=== PATIENT | female | born 1990 | race Caucasian/White ===

== ENCOUNTER 2017-12-15 17:04 | Emergency (ER) | payer BC ==
--- NOTE | 2017-12-15 17:17 | EDM.PDOC ---
ED HPI GENERAL MEDICAL PROBLEM - General Chief Complaint: Lower Extremity Injury/Pain Stated Complaint: SWELLING IN R LEG/32WKS PREG Time Seen by Provider: 12/15/17 17:16 Source of Information: Reports: Patient History Limitations: Reports: No Limitations - History of Present Illness INITIAL COMMENTS - FREE TEXT/NARRATIVE: History of present illness: []Patient is 32 weeks of right leg numbness. swelling and pain last night and abdominal cramping for weeks.dr. Zapata her OBrequest that she come here to be evaluated. Review of systems: As per history of present illness and below otherwise all systems reviewed and negative. Past medical history: As per history of present illness and as reviewed below otherwise noncontributory. Surgical history: As per history of present illness and as reviewed below otherwise noncontributory. Social history: No reported history of drug or alcohol abuse. Family history: As per history of present illness and as reviewed below otherwise noncontributory. Physical exam: General: Well developed, well nourished in NAD HEENT: Atraumatic, normocephalic, pupils reactive, negative for conjunctival pallor or scleral icterus, mucous membranes moist, throat clear, neck supple, nontender, trachea midline. Lungs: Clear to auscultation, breath sounds equal bilaterally, chest nontender. Heart: S1S2, regular, negative for clicks, rubs, or JVD. Abdomen: Soft, 32 week abdomen, nontender. Negative for masses or hepatosplenomegaly. Negative for costovertebral tenderness. Pelvis: Stable nontender. Genitourinary: Deferred. Rectal: Deferred. Extremities: Atraumatic, negative for cords or calf pain. No noted edema on her symptomatic leg, the right. She has trace pitting edema on the left. Neurovascular unremarkable. Neuro: Awake, alert, oriented. Cranial nerves II through XII unremarkable. Cerebellum unremarkable. Motor and sensory unremarkable throughout. Exam nonfocal. Diagnostics: []Doppler ultrasound of the right leg negative for DVT Therapeutics: [] Impression: []Right leg paresthesias Plan: []Patient is to go to OB directly from ER for monitoring. Definitive disposition and diagnosis as appropriate pending reevaluation and review of above. rightleg Pain Score (Numeric/FACES): 1 - Related Data Allergies Allergy/AdvReac Type Severity Reaction Status Date / Time latex Allergy Rash Verified 12/15/17 17:25 Home Meds: Home Meds Docosahexanoic Acid [ Dha] 200 mg PO DAILY 12/15/17 [History] Past Medical History HEENT History: Reports: None Cardiovascular History: Reports: None Respiratory History: Reports: None Genitourinary History: Reports: None EAP SPECIALIST History: Reports: None Musculoskeletal History: Reports: None Neurological History: Reports: None Psychiatric History: Reports: None Endocrine/Metabolic History: Reports: None Dermatologic History: Reports: None - Infectious Disease History Infectious Disease History: Reports: None - Past Surgical History HEENT Surgical History: Reports: None GI Surgical History: Reports: Cholecystectomy Female Surgical History: Reports: None Endocrine Surgical History: Reports: None Neurological Surgical History: Reports: None Musculoskeletal Surgical History: Reports: None Social & Family History - Family History HEENT: Reports: None Cardiac: Reports: None - Tobacco Use Smoking Status *Q: Current Every Day Smoker Years of Tobacco use: 10 Packs/Tins Daily: 0.2 Second Hand Smoke Exposure: No - Alcohol Use Days Per Week of Alcohol Use: 1 Number of Drinks Per Day: 5 Total Drinks Per Week: 5 - Recreational Drug Use Recreational Drug Use: No Review of Systems - Review of Systems Review Of Systems: See Below (the history of present illness) ED EXAM, GENERAL - Physical Exam Exam: See Below (see history of present illness) Course - Vital Signs Last Recorded V/S: Last Vital Signs Temp 97.3 F 12/15/17 17:18 Pulse 100 12/15/17 17:18 Resp 18 12/15/17 17:18 BP 121/72 12/15/17 17:18 Pulse Ox 99 12/15/17 17:18 - Orders/Labs/Meds Orders: Active Orders 24 hr Category Date Time Status Heart Rate [RC] Click to Edit Care 12/15/17 18:11 Active Venous Doppler Lwr Ext Rt [US] Stat Exams 12/15/17 17:15 Taken Departure - Departure Time of Disposition: 18:23 Disposition: Home, Self-Care 01 Condition: Good Clinical Impression: Right leg paresthesias - Discharge Information Referrals: Yony Goyal MD [Primary Care Provider] - Forms: ED Department Discharge Additional Instructions: The following information is given to patients seen in the emergency department who are being discharged to home. This information is to outline your options for follow-up care. We provide all patients seen in our emergency department with a follow-up referral. The need for follow-up, as well as the timing and circumstances, are variable depending upon the specifics of your emergency department visit. If you don't have a primary care physician on staff, we will provide you with a referral. We always advise you to contact your personal physician following an emergency department visit to inform them of the circumstance of the visit and for follow-up with them and/or the need for any referrals to a consulting specialist. The emergency department will also refer you to a specialist when appropriate. This referral assures that you have the opportunity for follow-up care with a specialist. All of these measure are taken in an effort to provide you with optimal care, which includes your follow-up. Under all circumstances we always encourage you to contact your private physician who remains a resource for coordinating your care. When calling for follow-up care, please make the office aware that this follow-up is from your recent emergency room visit. If for any reason you are refused follow-up, please contact the [facility] Emergency Department at and asked to speak to the emergency department charge nurse. [facility] [address] [place] [address] - My Orders Last 24 Hours: My Active Orders 12/15/17 17:15 Venous Doppler Lwr Ext Rt [US] Stat 12/15/17 18:11 Heart Rate [RC] Click to Edit - Assessment/Plan Last 24 Hours: My Active Orders 12/15/17 17:15 Venous Doppler Lwr Ext Rt [US] Stat 12/15/17 18:11 Heart Rate [RC] Click to Edit
[2017-12-15 18:25] VITALS: BP 124/82
--- NOTE | 2017-12-18 10:28 | US ---
EXAM DATE: 12/15/17 PATIENT'S AGE: 27 Patient: JEANE STRANGE Facility: [place], [place] Site . Site : 1991 Study: US Extremity Right [id number]/[id number] 6:08:18 PM Ordering Physician: Hector Ramos Final Report: HISTORY: Right leg pain. Thirty-two weeks . TECHNIQUE: Grayscale and color and spectral Doppler ultrasound of the right lower extremity deep veins. COMPARISON: None. FINDINGS: Common femoral, femoral, and popliteal veins are patent and compressible with normal response to augmentation. Anterior and posterior tibial veins and peroneal veins are patent. IMPRESSION: No right lower extremity DVT. Dictated by Rudy Murrieta MD @ Dec 15 2017 6:18PM (Electronic Signature) Report Signed by Proxy. DEL
== END 2017-12-15 18:32 | disposition still patient (30) ==
LOC: MW.ED 17:04
DX: O99.89 Other specified diseases and conditions complicating pregnancy, childbirth and the puerperium (principal); R20.2 Paresthesia of skin; O99.333 Smoking (tobacco) complicating pregnancy, third trimester; F17.210 Nicotine dependence, cigarettes, uncomplicated; Z91.040 Latex allergy status; Z3A.32 32 weeks gestation of pregnancy
CPT/HCPCS: 93971-26-RT; 93971-RT; 99283; 99283-25

== ENCOUNTER 2018-02-06 16:25 | Inpatient (IN) | payer BC, MEDICAID, OTHER ==
[2018-02-06] MEDS ORDERED: Butorphanol 1 MG/ML SDV IVPUSH PRN (17:10)
[2018-02-06] MEDS ORDERED: Nalbuphine 10 MG/1 ML Vial IVPUSH PRN (17:10)
[2018-02-06] MEDS ORDERED: Water For Irrigation,Sterile 1,000 ML Container IRR PRN (17:10)
[2018-02-06] MEDS ORDERED: Tranexamic Acid 1,000 MG in Sodium Chloride 0.9% 100 ML IV PRN (17:10)
[2018-02-06] MEDS ORDERED: Lidocaine 1% 50 ML MDV INJECT PRN (17:10)
[2018-02-06] MEDS ORDERED: Carboprost Tromethamine 250 MCG/1 ML Amp IM PRN (17:10)
[2018-02-06] MEDS ORDERED: Sodium Chloride 0.9% 2.5 ML Syringe FLUSH PRN (17:10)
[2018-02-06] MEDS ORDERED: Misoprostol 200 MCG Tab PO PRN (17:10)
[2018-02-06] MEDS ORDERED: Sodium Chloride 0.9% 10 ML Syringe FLUSH PRN (17:10)
[2018-02-06] MEDS ORDERED: Methylergonovine 0.2 MG/1 ML Amp IM PRN (17:10)
[2018-02-06] MEDS ORDERED: Oxytocin/0.9 % Sodium Chloride 30 UNIT/500 ML BAG IV SCH ×2 (17:15→21:15)
--- NOTE | 2018-02-06 19:06 | PCM.LDHP ---
L&D History of Present Illness - General Date of Service: 02/06/18 Admit Problem/Dx: Patient Status Order with Admit Dx/Problem 02/06/18 17:10 Patient Status [ADT] Routine Admission Diagnosis/Problem Admission Diagnosis/Problem - planned Source of Information: Patient History Limitations: Reports: No Limitations - History of Present Illness Improves with: Reports: None Worsens with: Reports: None Associated Symptoms: Reports: N - Related Data Allergies/Adverse Reactions: Allergies Allergy/AdvReac Type Severity Reaction Status Date / Time latex Allergy Rash Verified 12/15/17 17:25 Home Medications: Home Meds Docosahexanoic Acid [ Dha] 200 mg PO DAILY 12/15/17 [History] Past Medical History HEENT History: Reports: None Cardiovascular History: Reports: None Respiratory History: Reports: None Genitourinary History: Reports: None HIGHWAY TECHNICIAN History: Reports: None Musculoskeletal History: Reports: None Neurological History: Reports: None Psychiatric History: Reports: None Endocrine/Metabolic History: Reports: None Dermatologic History: Reports: None - Infectious Disease History Infectious Disease History: Reports: None - Past Surgical History HEENT Surgical History: Reports: None GI Surgical History: Reports: Cholecystectomy Female Surgical History: Reports: None Endocrine Surgical History: Reports: None Neurological Surgical History: Reports: None Musculoskeletal Surgical History: Reports: None Social & Family History - Family History Family Medical History: Noncontributory HEENT: Reports: None Cardiac: Reports: None - Tobacco Use Smoking Status *Q: Current Every Day Smoker Years of Tobacco use: 10 Packs/Tins Daily: 0.2 Second Hand Smoke Exposure: No - Alcohol Use Days Per Week of Alcohol Use: 1 Number of Drinks Per Day: 5 Total Drinks Per Week: 5 - Recreational Drug Use Recreational Drug Use: No H&P Review of Systems - Review of Systems: Review Of Systems: See Below General: Reports: No Symptoms HEENT: Reports: No Symptoms Pulmonary: Reports: No Symptoms Cardiovascular: Reports: No Symptoms Gastrointestinal: Reports: No Symptoms Genitourinary: Reports: No Symptoms Musculoskeletal: Reports: No Symptoms Skin: Reports: No Symptoms Psychiatric: Reports: No Symptoms Neurological: Reports: No Symptoms Hematologic/Lymphatic: Reports: No Symptoms Immunologic: Reports: No Symptoms L&D Exam - Exam Exam: See Below - OB Specific Fundal Height In cm: 37 Contraction Intensity: Mild Movement: Active Heart Tones: Present Presentation: Vertex - Morel Score Morel Score Cervix Position: Anterior Morel Score Consistency: Soft Morel Score Effacement: >80% Morel Score Dilation: 3-4 cm Morel Score Infant's Station: -1 ,0 Morel Score Total: 11 - Exam General: Alert, Oriented HEENT: PERRLA, Conjunctiva Clear, EACs Clear, EOMI, Hearing Intact, Mucosa Moist & Allen, Nares Patent, Normal Nasal Septum, Posterior Pharynx Clear, TMs Clear Neck: Supple, Trachea Midline Lungs: Clear to Auscultation, Normal Respiratory Effort Cardiovascular: Regular Rate, Regular Rhythm GI/Abdominal Exam: Normal Bowel Sounds, Soft, Non-Tender, No Organomegaly, No Distention, No Abnormal Bruit, No Mass, Pelvis Stable Rectal Exam: Normal Exam, Normal Rectal Tone Genitourinary: Normal external exam, Normal bimanual exam, Normal speculum exam Back Exam: Normal Inspection, Full Range of Motion Extremities: Normal Inspection, Normal Range of Motion, Non-Tender, No Pedal Edema, Normal Capillary Refill Skin: Warm, Dry, Intact Neurological: Cranial Nerves Intact, Reflexes Equal Bilateral Psychiatric: Alert, Normal Affect, Normal Mood - Patient Data Lab Results Last 24 hrs: Laboratory Results - last 24 hr 02/06/18 02/06/18 02/06/18 Range/Units 16:45 17:25 17:25 WBC 9.86 (4.0-11.0) K/uL RBC 3.94 L (4.30-5.90) M/uL Hgb 12.0 (12.0-16.0) g/dL Hct 35.1 L (36.0-46.0) % MCV 89.1 (80.0-98.0) fL MCH 30.5 (27.0-32.0) pg MCHC 34.2 (31.0-37.0) g/dL RDW Std Deviation 45.7 (28.0-62.0) fl RDW Coeff of Brenda 14 (11.0-15.0) % Plt Count 205 (150-400) K/uL MPV 11.00 (7.40-12.00) fL Nucleated RBC % 0.0 /100WBC Nucleated RBCs # 0 K/uL Membrane Rupture POSITIVE Blood Type A POSITIVE Antibody Screen NEGATIVE Result Diagrams: 02/06/18 17:25 Problem List Initiated/Reviewed/Updated: Yes Orders Last 24hrs: Active Orders 24 hr Category Date Time Status Patient Status [ADT] Routine ADT 02/06/18 17:10 Active Non Stress Test [RC] PER UNIT ROUTINE Care 02/06/18 16:31 Inactive May Shower [RC] ASDIRECTED Care 02/06/18 17:10 Active Notify Provider [RC] PRN Care 02/06/18 17:10 Active Up ad Ashley [RC] ASDIRECTED Care 02/06/18 16:31 Inactive Up ad Ashley [RC] ASDIRECTED Care 02/06/18 17:10 Active Vaginal Exam [RC] Click to Edit Care 02/06/18 16:31 Inactive Vital Signs [RC] PER UNIT ROUTINE Care 02/06/18 16:31 Inactive Vital Signs [RC] PER UNIT ROUTINE Care 02/06/18 17:10 Active Clear Liquid Diet [DIET] Diet 02/06/18 Breakfast Active Butorphanol [Stadol] Med 02/06/18 17:10 Active 1 mg IVPUSH Q1H PRN Carboprost Tromethamine [Hemabate DS] Med 02/06/18 17:10 Active 250 mcg IM ASDIRECTED PRN Lactated Ringers [Ringers, Lactated] 1,000 ml Med 02/06/18 17:15 Active IV ASDIRECTED Lidocaine 1% [Xylocaine 1%] Med 02/06/18 17:10 Active 50 ml INJECT .ONCE PRN Methylergonovine [Methergine] Med 02/06/18 17:10 Active 0.2 mg IM ASDIRECTED PRN Misoprostol [Cytotec] Med 02/06/18 17:10 Active 200 mcg PO .ONCE PRN Nalbuphine [Nubain] Med 02/06/18 17:10 Active 10 mg IVPUSH Q1H PRN Oxytocin/0.9 % Sodium Chloride [Oxytocin 30 Unit/500 ML Med 02/06/18 17:15 Active -NS] 30 unit in 500 ml IV TITRATE Sodium Chloride 0.9% [Saline Flush] Med 02/06/18 17:10 Active 10 ml FLUSH ASDIRECTED PRN Sodium Chloride 0.9% [Saline Flush] Med 02/06/18 17:10 Active 2.5 ml FLUSH ASDIRECTED PRN Tranexamic Acid [Cyklokapron] 1,000 mg Med 02/06/18 17:10 Active Sodium Chloride 0.9% [Normal Saline] 100 ml IV ONETIME Water For Irrigation,Sterile [Sterile Water for Med 02/06/18 17:10 Active Irrigation] 1,000 ml IRR ASDIRECTED PRN Scalp Electrode [WOMSER] Per Unit Routine Oth 02/06/18 17:10 Ordered Peripheral IV Insertion Adult [OM.PC] Routine Oth 02/06/18 17:10 Ordered Resuscitation Status Routine Resus Stat 02/06/18 17:10 Ordered Medication Orders Butorphanol Tartrate (Stadol) 1 mg IVPUSH Q1H PRN PRN Reason: Pain Carboprost Tromethamine (Hemabate Ds) 250 mcg IM ASDIRECTED PRN PRN Reason: Post Hemorrhage Lactated Ringer's (Ringers, Lactated) 1,000 mls @ 150 mls/hr IV ASDIRECTED TENISHA Oxytocin/Sodium Chloride (Oxytocin 30 Unit/500 Ml-Ns) 30 unit in 500 mls @ 999 mls/hr IV TITRATE TENISHA Tranexamic Acid 1,000 mg/ (Sodium Chloride) 110 mls @ 660 mls/hr IV ONETIME PRN PRN Reason: Bleeding Lidocaine HCl (Xylocaine 1%) 50 ml INJECT .ONCE PRN PRN Reason: Laceration repair Methylergonovine Maleate (Methergine) 0.2 mg IM ASDIRECTED PRN PRN Reason: Post Hemorrhage Misoprostol (Cytotec) 200 mcg PO .ONCE PRN PRN Reason: Post Hemorrhage Nalbuphine HCl (Nubain) 10 mg IVPUSH Q1H PRN PRN Reason: Pain (severe 7-10) Sodium Chloride (Saline Flush) 10 ml FLUSH ASDIRECTED PRN PRN Reason: Keep Vein Open Sodium Chloride (Saline Flush) 2.5 ml FLUSH ASDIRECTED PRN PRN Reason: Keep Vein Open Sterile Water (Sterile Water For Irrigation) 1,000 ml IRR ASDIRECTED PRN PRN Reason: delivery Assessment/Plan Comment:: [id number] SROM at 1:30 pm felice mildly. She can have epidural when needed.
[2018-02-06] MEDS ORDERED: Nicotine 21 MG/24 Hr Patch TRDERM SCH (19:15)
[2018-02-06] MEDS: Lactated Ringers 1,000 ML IV SCH (22:49)
--- NOTE | 2018-02-07 00:53 | PCM.PREANE ---
Preanesthetic Assessment - Procedure Proposed Procedure: labor epidural - Anesthesia/Transfusion/Family Hx Anesthesia History: Prior Anesthesia Without Reaction Family History of Anesthesia Reaction: No Transfusion History: No Prior Transfusion(s) - Review of Systems Other: Reports: None - Physical Assessment Height: 5 ft 8.5 in Weight: 90.265 kg ASA Class: 2 Mental Status: Alert & Oriented x3 Airway Class: Mallampati = 1 Dentition: Reports: Normal Dentition Thyro-Mental Finger Breadths: 3 Mouth Opening Finger Breadths: 3 ROM/Head Extension: Full - Lab Values: Laboratory Last Values WBC 9.86 K/uL (4.0-11.0) 02/06/18 17:25 RBC 3.94 M/uL (4.30-5.90) L 02/06/18 17:25 Hgb 12.0 g/dL (12.0-16.0) 02/06/18 17:25 Hct 35.1 % (36.0-46.0) L 02/06/18 17:25 MCV 89.1 fL (80.0-98.0) 02/06/18 17:25 MCH 30.5 pg (27.0-32.0) 02/06/18 17:25 MCHC 34.2 g/dL (31.0-37.0) 02/06/18 17:25 RDW Std Deviation 45.7 fl (28.0-62.0) 02/06/18 17:25 RDW Coeff of Brenda 14 % (11.0-15.0) 02/06/18 17:25 Plt Count 205 K/uL (150-400) 02/06/18 17:25 MPV 11.00 fL (7.40-12.00) 02/06/18 17:25 Nucleated RBC % 0.0 /100WBC 02/06/18 17:25 Nucleated RBCs # 0 K/uL 02/06/18 17:25 Membrane Rupture POSITIVE 02/06/18 16:45 Blood Type A POSITIVE 02/06/18 17:25 Antibody Screen NEGATIVE 02/06/18 17:25 - Allergies Allergies/Adverse Reactions: Allergies Allergy/AdvReac Type Severity Reaction Status Date / Time latex Allergy Rash Verified 12/15/17 17:25 - Blood Blood Available: Yes Product(s) Available: PRBC - Acknowledgements Anesthesia Type Planned: Epidural Pt an Appropriate Candidate for the Planned Anesthesia: Yes Alternatives and Risks of Anesthesia Discussed w Pt/Guardian: Yes Pt/Guardian Understands and Agrees with Anesthesia Plan: Yes PreAnesthesia Questionnaire HEENT History: Reports: Impaired Vision Cardiovascular History: Reports: None Respiratory History: Reports: None Genitourinary History: Reports: None TECHNICAL APPLICATIONS SCIENTIST History: Reports: Musculoskeletal History: Reports: None Neurological History: Reports: None Psychiatric History: Reports: None Endocrine/Metabolic History: Reports: None Dermatologic History: Reports: None - Infectious Disease History Infectious Disease History: Reports: None - Past Surgical History HEENT Surgical History: Reports: Other (See Below) Other HEENT Surgeries/Procedures: [place] tooth extraction. GI Surgical History: Reports: Cholecystectomy Female Surgical History: Reports: None Endocrine Surgical History: Reports: None Neurological Surgical History: Reports: None Musculoskeletal Surgical History: Reports: None - SUBSTANCE USE Smoking Status *Q: Current Every Day Smoker Tobacco Use Within Last Twelve Months: Cigarettes Second Hand Smoke Exposure: No Days Per Week of Alcohol Use: 1 Number of Drinks Per Day: 5 Total Drinks Per Week: 5 Recreational Drug Use History: No - HOME MEDS Home Medications: Home Meds Docosahexanoic Acid [ Dha] 200 mg PO DAILY 12/15/17 [History] - CURRENT (IN HOUSE) MEDS Current Meds: Current Medications Butorphanol Tartrate (Stadol) 1 mg IVPUSH Q1H PRN PRN Reason: Pain Carboprost Tromethamine (Hemabate Ds) 250 mcg IM ASDIRECTED PRN PRN Reason: Post Hemorrhage Lactated Ringer's (Ringers, Lactated) 1,000 mls @ 150 mls/hr IV ASDIRECTED TENISHA Last Admin: 02/06/18 22:49 Dose: 150 mls/hr Oxytocin/Sodium Chloride (Oxytocin 30 Unit/500 Ml-Ns) 30 unit in 500 mls @ 999 mls/hr IV TITRATE TENISHA Tranexamic Acid 1,000 mg/ (Sodium Chloride) 110 mls @ 660 mls/hr IV ONETIME PRN PRN Reason: Bleeding Oxytocin/Sodium Chloride (Oxytocin 30 Unit/500 Ml-Ns) 30 unit in 500 mls @ 2 mls/hr IV TITRATE TENISHA; Protocol Last Infusion: 02/06/18 23:50 Dose: 6 munits/min, 6 mls/hr Lidocaine HCl (Xylocaine 1%) 50 ml INJECT .ONCE PRN PRN Reason: Laceration repair Methylergonovine Maleate (Methergine) 0.2 mg IM ASDIRECTED PRN PRN Reason: Post Hemorrhage Misoprostol (Cytotec) 200 mcg PO .ONCE PRN PRN Reason: Post Hemorrhage Nalbuphine HCl (Nubain) 10 mg IVPUSH Q1H PRN PRN Reason: Pain (severe 7-10) Nicotine (Habitrol) 21 mg TRDERM DAILY TENISHA Last Admin: 02/06/18 21:21 Dose: 21 mg Sodium Chloride (Saline Flush) 10 ml FLUSH ASDIRECTED PRN PRN Reason: Keep Vein Open Sodium Chloride (Saline Flush) 2.5 ml FLUSH ASDIRECTED PRN PRN Reason: Keep Vein Open Sterile Water (Sterile Water For Irrigation) 1,000 ml IRR ASDIRECTED PRN PRN Reason: delivery
[2018-02-07] MEDS: Lactated Ringers 1,000 ML IV SCH ×2 (03:20→03:56)
[2018-02-07] MEDS ORDERED: Ropivacaine 0.2% 2 MG/ML 20 ML SDV ONE (03:32)
[2018-02-07] MEDS ORDERED: Acetaminophen 500 MG Tab PO PRN ×2 (04:50)
[2018-02-07] MEDS ORDERED: Bisacodyl 10 MG Supp RECTAL PRN (04:50)
[2018-02-07] MEDS ORDERED: Benzocaine/Menthol 20%-0.5% Spray 78 GM Cannister TOP PRN (04:50)
[2018-02-07] MEDS ORDERED: oxyCODONE 5 MG Tab PO PRN (04:50)
[2018-02-07] MEDS ORDERED: Witch Hazel Medicated Pads 40/Jar TOP PRN (04:50)
[2018-02-07] MEDS ORDERED: Ibuprofen 400 MG Tab PO PRN (04:50)
[2018-02-07] MEDS ORDERED: Ibuprofen 800 MG Tab PO PRN (04:50)
[2018-02-07] MEDS ORDERED: Docusate Sodium 100 MG Cap PO PRN (04:50)
[2018-02-07] MEDS ORDERED: Lanolin 100% Cream 7 GM Tube TOP PRN (04:50)
--- NOTE | 2018-02-07 05:33 | OR ---
SURGEON: Yony Goyal MD DATE OF PROCEDURE: 02/07/2018 Ms. Morel is a 27-year-old. She is para 2-0-0-2. She is term 39 plus 1. She is followed mainly by me in this . Her GBS status is negative. She had no are problem or issue prenatally. She is admitted at 4:00 p.m. last night with a spontaneous rupture of the membrane, which is confirmed at 1:30 p.m. of February 06. The patient at the time of admission, she was dilated 3 to 4, 80, vertex, and -2, and she had a regular contraction. Later on, she required low-dose Pitocin, and later on, the patient had epidural anesthesia for labor analgesia. At 4:00 a.m. of 02/07/2018, the patient became complete- complete vertex and +1 to +2 station, and she was able to accomplish normal spontaneous vaginal delivery. A male fetus, cried immediately, and scores reported to be 8 and 9. The placenta delivered spontaneous complete and intact. There was no need for episiotomy. There was no tear, and there was no laceration, perineal or vaginal. The placenta delivered spontaneous, complete, and intact. Estimated blood loss is 350 to 400 mL in this . heart rate was category 1 through the entire process of labor. There was no complication. CHARLY / EDMOND /[id number]
--- NOTE | 2018-02-07 13:45 | PCM48HPAN ---
Post Anesthesia Note - EVALUATION WITHIN 48HRS OF ANESTHETIC Vital Signs in Normal Range: Yes Patient Participated in Evaluation: Yes Respiratory Function Stable: Yes Airway Patent: Yes Cardiovascular Function Stable: Yes Hydration Status Stable: Yes Pain Control Satisfactory: Yes Nausea and Vomiting Control Satisfactory: Yes Mental Status Recovered: Yes Resp Rate: 16 - COMMENTS/OBSERVATIONS Free Text/Narrative:: Epidural placement was Late in the labor sequesnce and she got only vaginal coverage. However, very pleased with the clinical care by the PHP ARCHITECT.
[2018-02-07] MEDS ORDERED: Nicotine 21 MG/24 Hr Patch TRDERM SCH (21:00)
[2018-02-08 08:52] VITALS: BP 115/73
--- NOTE | 2018-02-08 09:59 | PCM.DCSUM1 ---
Discharge Summary - Discharge Data Discharge Date: 02/08/18 Discharge Disposition: Home, Self-Care 01 Condition: Good - Patient Instructions Diet: Usual Diet as Tolerated Driving: Do Not Drive Showering/Bathing: February Shower Notify Provider of: Fever, Increased Pain - Discharge Plan Home Medications: Home Meds Docosahexanoic Acid [ Dha] 200 mg PO DAILY 12/15/17 [History] Referrals: [facility] [Outside] Yony Goyal MD [Primary Care Provider] - 03/20/18 1:30 pm - General Info Date of Service: 02/08/18 Functional Status: Reports: Pain Controlled - Review of Systems General: Reports: No Symptoms HEENT: Reports: No Symptoms Pulmonary: Reports: No Symptoms Cardiovascular: Reports: No Symptoms Gastrointestinal: Reports: No Symptoms Genitourinary: Reports: No Symptoms Musculoskeletal: Reports: No Symptoms Skin: Reports: No Symptoms Neurological: Reports: No Symptoms Psychiatric: Reports: No Symptoms - Patient Data Vitals - Most Recent: Last Vital Signs Temp 35.9 C 02/08/18 08:00 Pulse 70 02/08/18 08:00 Resp 18 02/08/18 08:00 BP 115/73 02/08/18 08:00 Pulse Ox 100 02/08/18 08:00 Weight - Most Recent: 90.265 kg Lab Results - Last 24 hrs: Laboratory Results - last 24 hr 02/08/18 Range/Units 05:30 Hgb 10.9 L (12.0-16.0) g/dL Hct 33.1 L (36.0-46.0) % Med Orders - Current: Current Medications Acetaminophen (Tylenol Extra Strength) 500 mg PO Q4H PRN PRN Reason: Pain Acetaminophen (Tylenol Extra Strength) 1,000 mg PO Q4H PRN PRN Reason: Pain Benzocaine/Menthol (Dermoplast Pain Relief 20%-0.5% [employer]) 78 gm TOP ASDIRECTED PRN PRN Reason: Perineal Comfort Measure Bisacodyl (Dulcolax) 10 mg RECTAL .ONCE PRN PRN Reason: Constipation Butorphanol Tartrate (Stadol) 1 mg IVPUSH Q1H PRN PRN Reason: Pain Carboprost Tromethamine (Hemabate Ds) 250 mcg IM ASDIRECTED PRN PRN Reason: Post Hemorrhage Docusate Sodium (Colace) 100 mg PO BID PRN PRN Reason: Constipation Emollient Ointment (Lansinoh Hpa) 0 gm TOP ASDIRECTED PRN PRN Reason: Sore Nipples Lactated Ringer's (Ringers, Lactated) 1,000 mls @ 150 mls/hr IV ASDIRECTED TENISHA Last Admin: 02/07/18 03:56 Dose: 150 mls/hr Oxytocin/Sodium Chloride (Oxytocin 30 Unit/500 Ml-Ns) 30 unit in 500 mls @ 999 mls/hr IV TITRATE [facility] Tranexamic Acid 1,000 mg/ (Sodium Chloride) 110 mls @ 660 mls/hr IV ONETIME PRN PRN Reason: Bleeding Oxytocin/Sodium Chloride (Oxytocin 30 Unit/500 Ml-Ns) 30 unit in 500 mls @ 2 mls/hr IV TITRATE [facility]; Protocol Last Infusion: 02/07/18 04:44 Dose: 999 mls/hr Ibuprofen (Motrin) 400 mg PO Q4H PRN PRN Reason: Pain Ibuprofen (Motrin) 800 mg PO Q6H PRN PRN Reason: Pain Last Admin: 02/07/18 20:07 Dose: 800 mg Lidocaine HCl (Xylocaine 1%) 50 ml INJECT .ONCE PRN PRN Reason: Laceration repair Methylergonovine Maleate (Methergine) 0.2 mg IM ASDIRECTED PRN PRN Reason: Post Hemorrhage Misoprostol (Cytotec) 200 mcg PO .ONCE PRN PRN Reason: Post Hemorrhage Nalbuphine HCl (Nubain) 10 mg IVPUSH Q1H PRN PRN Reason: Pain (severe 7-10) Nicotine (Habitrol) 21 mg TRDERM BEDTIME [facility] Last Admin: 02/07/18 22:01 Dose: Not Given Oxycodone HCl (Oxycodone) 5 mg PO Q2H PRN PRN Reason: Pain Sodium Chloride (Saline Flush) 10 ml FLUSH ASDIRECTED PRN PRN Reason: Keep Vein Open Sodium Chloride (Saline Flush) 2.5 ml FLUSH ASDIRECTED PRN PRN Reason: Keep Vein Open Sterile Water (Sterile Water For Irrigation) 1,000 ml IRR ASDIRECTED PRN PRN Reason: delivery Witch Mallorie (Tucks) 1 pad TOP ASDIRECTED PRN PRN Reason: comfort care Discontinued Medications Fentanyl/Bupivacaine HCl (Nyxckpcl-Iefyt-Ud 2 Mcg/Ml-0.125%) Confirm Administered Dose 100 mls @ as directed EP .STK-MED ONE Stop: 02/07/18 03:33 Last Admin: 02/07/18 07:11 Dose: Not Given Nicotine (Habitrol) 21 mg TRDERM DAILY TENISHA Last Admin: 02/06/18 21:21 Dose: 21 mg Ropivacaine (Naropin 0.2%) Confirm Administered Dose 20 ml .ROUTE .STK-MED ONE Stop: 02/07/18 03:33 Last Admin: 02/07/18 07:11 Dose: Not Given - Exam General: Reports: Alert, Oriented HEENT: Reports: Pupils Equal, Pupils Reactive, EOMI, Mucous Membr. Moist/[place] Neck: Reports: Supple Lungs: Reports: Clear to Auscultation, Normal Respiratory Effort Cardiovascular: Reports: Regular Rate, Regular Rhythm GI/Abdominal Exam: Normal Bowel Sounds, Soft, Non-Tender, No Organomegaly, No Distention, No Abnormal Bruit, No Mass, Pelvis Stable (Female) Exam: Normal External Exam, Normal Speculum Exam, Normal Bimanual Exam Rectal (Female) Exam: Normal Exam, Normal Rectal Tone Back Exam: Reports: Normal Inspection, Full Range of Motion Extremities: Normal Inspection, Normal Range of Motion, Non-Tender, No Pedal Edema, Normal Capillary Refill Skin: Reports: Warm, Dry, Intact Wound/Incisions: Reports: Healing Well Neurological: Reports: No New Focal Deficit Psy/Mental Status: Reports: Alert, Normal Affect, Normal Mood
== END 2018-02-08 10:51 | disposition home or self-care (01) | DRG 775 ==
LOC: MW.OBCHECK 16:25 → MW.OB 16:26 → MW.OBCHECK 17:09 → MW.OB 17:10 → OBSVTOIN 02-07 04:42 → MW.OB 02-07 10:39 → MW.MS 02-07 23:09
PROVIDERS: ADMIT Obstetrics & Gynecology; ATTEND Obstetrics & Gynecology
PROC: 10E0XZZ Delivery of Products of Conception, External Approach (ICD-10-PCS; principal; 2018-02-07)
DX: O42.02 Full-term premature rupture of membranes, onset of labor within 24 hours of rupture (principal); Z3A.39 39 weeks gestation of pregnancy; Z37.0 Single live birth
CPT/HCPCS: 36415; 84112; 85014; 85018; 85027; 86850; 86900; 86901; A9270-GY; J2590; J2795; J7120

== ENCOUNTER 2019-05-20 01:41 | Inpatient (IN) | payer OTHER ==
[2019-05-20] MEDS ORDERED: Terbutaline 1 MG/ML SDV SUBCUT PRN (14:44)
[2019-05-20] MEDS ORDERED: Butorphanol 1 MG/ML SDV IVPUSH PRN (14:44)
[2019-05-20] MEDS ORDERED: Carboprost Tromethamine 250 MCG/1 ML Amp IM PRN (14:44)
[2019-05-20] MEDS ORDERED: Lidocaine 1% 50 ML MDV INJECT PRN (14:44)
[2019-05-20] MEDS ORDERED: Sodium Chloride 0.9% 10 ML Syringe FLUSH PRN (14:44)
[2019-05-20] MEDS ORDERED: Sodium Chloride 0.9% 10 ML SDV IV PRN (14:44)
[2019-05-20] MEDS ORDERED: Misoprostol 200 MCG Tab PO PRN (14:44)
[2019-05-20] MEDS ORDERED: Tranexamic Acid 1,000 MG in Sodium Chloride 0.9% 100 ML IV PRN (14:44)
[2019-05-20] MEDS ORDERED: Methylergonovine 0.2 MG/1 ML Amp IM PRN (14:44)
[2019-05-20] MEDS ORDERED: Sodium Chloride 0.9% 2.5 ML Syringe FLUSH PRN (14:44)
[2019-05-20] MEDS ORDERED: Misoprostol 25 MCG (1/4 of 100 MCG) Tab VAG PRN (14:44)
[2019-05-20] MEDS ORDERED: Water For Irrigation,Sterile 1,000 ML Container IRR PRN (14:44)
[2019-05-20] MEDS ORDERED: Oxytocin/0.9 % Sodium Chloride 30 UNIT/500 ML BAG IV SCH ×2 (14:45)
[2019-05-20] MEDS: Misoprostol 25 MCG (1/4 of 100 MCG) Tab VAG PRN ×2 (15:28→19:30)
[2019-05-20 20:09] LABS: BLOOD UREA NITROGEN,BUN 7 mg/dL (7.0-18.0); CARBON DIOXIDE,CO2 21.9 mmol/L (21.0-32.0); CHLORIDE,CL 104 mmol/L (98-107); GLUCOSE RANDOM 103 mg/dL (74-106); POTASSIUM,K 3.8 mmol/L (3.5-5.1); SODIUM,NA 138 mmol/L (136-145)
[2019-05-20] MEDS: Lactated Ringers 1,000 ML IV SCH ×2 (20:45→21:16)
[2019-05-20] MEDS ORDERED: Bupivacaine 0.25% 10 ML SDV ONE (21:07)
[2019-05-20] MEDS ORDERED: fentaNYL 100 MCG/2 ML SDV ONE (21:07)
--- NOTE | 2019-05-20 21:37 | PCM.PREANE ---
Preanesthetic Assessment - Anesthesia/Transfusion/Family Hx Anesthesia History: Prior Anesthesia Without Reaction Family History of Anesthesia Reaction: No Transfusion History: No Prior Transfusion(s) - Review of Systems Gastrointestinal: Other (Choililethiasis) - Physical Assessment Pulse: 82 O2 Sat by Pulse Oximetry: 98 Respiratory Rate: 18 Blood Pressure: 118/64 Height: 1.73 m Weight: 89.811 kg ASA Class: 2E Mental Status: Alert & Oriented x3 Airway Class: Mallampati = 2 Dentition: Reports: Normal Dentition ROM/Head Extension: Full Lungs: Clear to Auscultation Cardiovascular: Regular Rate - Lab Values: Laboratory Last Values WBC 5.74 K/uL (4.0-11.0) 05/20/19 15:04 RBC 4.06 M/uL (4.30-5.90) L 05/20/19 15:04 Hgb 12.4 g/dL (12.0-16.0) 05/20/19 15:04 Hct 36.4 % (36.0-46.0) 05/20/19 15:04 MCV 89.7 fL (80.0-98.0) 05/20/19 15:04 MCH 30.5 pg (27.0-32.0) 05/20/19 15:04 MCHC 34.1 g/dL (31.0-37.0) 05/20/19 15:04 RDW Std Deviation 41.7 fl (28.0-62.0) 05/20/19 15:04 RDW Coeff of Brenda 13 % (11.0-15.0) 05/20/19 15:04 Plt Count 146 K/uL (150-400) L 05/20/19 15:04 MPV 11.60 fL (7.40-12.00) 05/20/19 15:04 Sodium 138 mmol/L (136-145) 05/20/19 19:42 Potassium 3.8 mmol/L (3.5-5.1) 05/20/19 19:42 Chloride 104 mmol/L (98-107) 05/20/19 19:42 Carbon Dioxide 21.9 mmol/L (21.0-32.0) 05/20/19 19:42 BUN 7 mg/dL (7.0-18.0) 05/20/19 19:42 Creatinine 0.6 mg/dL (0.6-1.0) 05/20/19 19:42 Est Cr Clr Drug Dosing 142.07 mL/min 05/20/19 19:42 Estimated GFR (MDRD) > 60.0 ml/min 05/20/19 19:42 Glucose 103 mg/dL (74-106) 05/20/19 19:42 Calcium 8.2 mg/dL (8.5-10.1) L 05/20/19 19:42 Total Bilirubin 0.8 mg/dL (0.2-1.0) 05/20/19 19:42 AST 128 IU/L (15-37) H 05/20/19 19:42 ALT 85 IU/L (14-63) H 05/20/19 19:42 Alkaline Phosphatase 244 U/L (46-116) H 05/20/19 19:42 Total Protein 6.3 g/dL (6.4-8.2) L 05/20/19 19:42 Albumin 2.6 g/dL (3.4-5.0) L 05/20/19 19:42 Globulin 3.7 g/dL (2.6-4.0) 05/20/19 19:42 Albumin/Globulin Ratio 0.7 (0.9-1.6) L 05/20/19 19:42 Blood Type A POSITIVE 05/20/19 15:04 Antibody Screen NEGATIVE 05/20/19 15:04 - Allergies Allergies/Adverse Reactions: Allergies Allergy/AdvReac Type Severity Reaction Status Date / Time latex Allergy Rash Verified 12/15/17 17:25 - Acknowledgements Anesthesia Type Planned: Epidural Pt an Appropriate Candidate for the Planned Anesthesia: Yes Alternatives and Risks of Anesthesia Discussed w Pt/Guardian: Yes Pt/Guardian Understands and Agrees with Anesthesia Plan: Yes PreAnesthesia Questionnaire - Past Health History Medical/Surgical History: Denies Medical/Surgical History HEENT History: Reports: Impaired Vision Cardiovascular History: Reports: None Respiratory History: Reports: None Genitourinary History: Reports: None [employer] History: Reports: Musculoskeletal History: Reports: None Neurological History: Reports: None Psychiatric History: Reports: None Endocrine/Metabolic History: Reports: None Dermatologic History: Reports: None - Infectious Disease History Infectious Disease History: Reports: None - Past Surgical History HEENT Surgical History: Reports: Other (See Below) Other HEENT Surgeries/Procedures: [place] tooth extraction. GI Surgical History: Reports: Cholecystectomy Female Surgical History: Reports: None Endocrine Surgical History: Reports: None Neurological Surgical History: Reports: None Musculoskeletal Surgical History: Reports: None - SUBSTANCE USE Smoking Status *Q: Current Every Day Smoker Tobacco Use Within Last Twelve Months: Cigarettes Second Hand Smoke Exposure: Yes Recreational Drug Use History: No - HOME MEDS Home Medications: Home Meds Docosahexanoic Acid [ Dha] 200 mg PO DAILY 12/15/17 [History] Ursodiol 300 mg PO TID 05/20/19 [History] - CURRENT (IN HOUSE) MEDS Current Meds: Current Medications Butorphanol Tartrate (Stadol) 1 mg IVPUSH ASDIRECTED PRN PRN Reason: Pain Carboprost Tromethamine (Hemabate Ds) 250 mcg IM ASDIRECTED PRN PRN Reason: Post Hemorrhage Lactated Ringer's (Ringers, Lactated) 1,000 mls @ 150 mls/hr IV ASDIRECTED TENISHA Last Admin: 05/20/19 20:45 Dose: 999 mls/hr Oxytocin/Sodium Chloride (Oxytocin 30 Unit/500 Ml-Ns) 30 unit in 500 mls @ 999 mls/hr IV TITRATE TENISHA Oxytocin/Sodium Chloride (Oxytocin 30 Unit/500 Ml-Ns) 30 unit in 500 mls @ 2 mls/hr IV TITRATE TENISHA; Protocol Tranexamic Acid 1,000 mg/ (Sodium Chloride) 110 mls @ 660 mls/hr IV ONETIME PRN PRN Reason: Bleeding Lidocaine HCl (Xylocaine 1%) 50 ml INJECT ONETIME PRN PRN Reason: Laceration repair Methylergonovine Maleate (Methergine) 0.2 mg IM ASDIRECTED PRN PRN Reason: Post Hemorrhage Misoprostol (Cytotec) 200 mcg PO ONETIME PRN PRN Reason: Post Hemorrhage Misoprostol (Cytotec) 25 mcg VAG ONETIME PRN PRN Reason: Cervical Ripening Misoprostol (Cytotec) 25 mcg VAG Q4H PRN PRN Reason: Cervical Ripening Last Admin: 05/20/19 19:30 Dose: 25 mcg Sodium Chloride (Saline Flush) 10 ml FLUSH ASDIRECTED PRN PRN Reason: Keep Vein Open Sodium Chloride (Saline Flush) 2.5 ml FLUSH ASDIRECTED PRN PRN Reason: Keep Vein Open Sodium Chloride (Normal Saline) 10 ml IV ASDIRECTED PRN PRN Reason: IV Use Sterile Water (Sterile Water For Irrigation) 1,000 ml IRR ASDIRECTED PRN PRN Reason: delivery Terbutaline Sulfate (Brethine) 0.25 mg SUBCUT ASDIRECTED PRN PRN Reason: Tacysystole Discontinued Medications Bupivacaine HCl (Sensorcaine-Mpf 0.25%) Confirm Administered Dose 10 ml .ROUTE .STK-MED ONE Stop: 05/20/19 21:08 Fentanyl (Sublimaze) Confirm Administered Dose 100 mcg .ROUTE .STK-MED ONE Stop: 05/20/19 21:08 Fentanyl/Bupivacaine HCl (Yhnamoaa-Rerag-Go 2 Mcg/Ml-0.125%) Confirm Administered Dose 100 mls @ as directed .ROUTE .STK-MED ONE Stop: 05/20/19 21:08
[2019-05-21] MEDS: Lactated Ringers 1,000 ML IV SCH (00:15)
[2019-05-21] MEDS ORDERED: diphenhydrAMINE 50 MG Cap PO PRN (01:30)
[2019-05-21] MEDS ORDERED: Docusate Sodium 100 MG Cap PO PRN (01:52)
[2019-05-21] MEDS ORDERED: Bisacodyl 10 MG Supp RECTAL PRN (01:52)
[2019-05-21] MEDS ORDERED: Witch Hazel Medicated Pads 40/Jar TOP PRN (01:52)
[2019-05-21] MEDS ORDERED: Benzocaine/Menthol 20%-0.5% Spray 78 GM Cannister TOP PRN (01:52)
[2019-05-21] MEDS ORDERED: Lanolin 100% Cream 7 GM Tube TOP PRN (01:52)
[2019-05-21] MEDS ORDERED: Ibuprofen 400 MG Tab PO PRN (01:52)
[2019-05-21] MEDS ORDERED: Acetaminophen 500 MG Tab PO PRN ×2 (01:52)
[2019-05-21] MEDS ORDERED: Lactated Ringers 1,000 ML IV SCH (02:00)
--- NOTE | 2019-05-21 03:17 | PCM.DEL ---
L & D Note - General Info Date of Service: 05/21/19 Mother's Due Date: 06/02/19 - Delivery Note Labor: Induced by ARM, Induced by Oxytocin Cervical Ripening Method: Misoprostil, Oxytocin Delivery Outcome: Livebirth Delivery Method: Spontaneous Vaginal Delivery-Single Nuchal Cord: Present, Reduced Anesthesia Type: Epidural Amniotic Fluid Description: Clear Laceration: None Placenta: Intact Cord: 3 Vessels Estimated Blood Loss: 300 Resuscitation Needed: No [place]: Suctioned, Warmed, [place] Used Provider: Kris Rodriguez Score 1 min: 8 Score 5 min: 9 Delivery Comments (Free Text/Narrative):: 28yo @38w2d admitted for IOL for suspected cholestasis of , s/ p cytotec, pitocin and AROM with clear fluid. Patient progressed to 10/100/+2 with epidural. Pushed for 5min with contractions. head delivered in OA presentation, restituted ROT. Tight nuchal cord reduced after delivery. Shoulder delivered easily, followed by the body. Baby placed on mother's chest. Cord clamped cut after 60sec and no longer pulsating. Cord gases obtained. Pitocin bolus given IV. Placenta delivered with gentle traction, examined to be intact with 3 vessel cord. No lacerations noted. Fundus firm and at the umbilicus, bleeding minimal. Baby pink, crying vigorously and moving all extremities. 8/9. - General Info Date of Service: 05/21/19 - Patient Data Vitals - Most Recent: Last Vital Signs Temp Pulse 82 05/20/19 21:37 Resp 18 05/20/19 21:37 BP 118/64 05/20/19 21:37 Pulse Ox 98 05/20/19 21:37 Weight - Most Recent: 198 lb Lab Results Last 24 Hours: Laboratory Results - last 24 hr 05/20/19 05/20/19 05/20/19 Range/Units 15:04 15:04 19:42 WBC 5.74 (4.0-11.0) K/uL RBC 4.06 L (4.30-5.90) M/uL Hgb 12.4 (12.0-16.0) g/dL Hct 36.4 (36.0-46.0) % MCV 89.7 (80.0-98.0) fL MCH 30.5 (27.0-32.0) pg MCHC 34.1 (31.0-37.0) g/dL RDW Std Deviation 41.7 (28.0-62.0) fl RDW Coeff of Brenda 13 (11.0-15.0) % Plt Count 146 L (150-400) K/uL MPV 11.60 (7.40-12.00) fL Sodium 138 (136-145) mmol/L Potassium 3.8 (3.5-5.1) mmol/L Chloride 104 (98-107) mmol/L Carbon Dioxide 21.9 (21.0-32.0) mmol/L BUN 7 (7.0-18.0) mg/dL Creatinine 0.6 (0.6-1.0) mg/dL Est Cr Clr Drug Dosing 142.07 mL/min Estimated GFR (MDRD) > 60.0 ml/min Glucose 103 (74-106) mg/dL Calcium 8.2 L (8.5-10.1) mg/dL Total Bilirubin 0.8 (0.2-1.0) mg/dL AST 128 H (15-37) IU/L ALT 85 H (14-63) IU/L Alkaline Phosphatase 244 H (46-116) U/L Total Protein 6.3 L (6.4-8.2) g/dL Albumin 2.6 L (3.4-5.0) g/dL Globulin 3.7 (2.6-4.0) g/dL Albumin/Globulin Ratio 0.7 L (0.9-1.6) Blood Type A POSITIVE Antibody Screen NEGATIVE Med Orders - Current: Current Medications Acetaminophen (Tylenol Extra Strength) 500 mg PO Q4H PRN PRN Reason: Pain Acetaminophen (Tylenol Extra Strength) 1,000 mg PO Q4H PRN PRN Reason: Pain Benzocaine/Menthol (Dermoplast Pain Relief 20%-0.5% [employer]) 78 gm TOP ASDIRECTED PRN PRN Reason: Perineal Comfort Measure Bisacodyl (Dulcolax) 10 mg RECTAL ONETIME PRN PRN Reason: Constipation Butorphanol Tartrate (Stadol) 1 mg IVPUSH ASDIRECTED PRN PRN Reason: Pain Carboprost Tromethamine (Hemabate Ds) 250 mcg IM ASDIRECTED PRN PRN Reason: Post Hemorrhage Diphenhydramine HCl (Benadryl) 50 mg PO Q6H PRN PRN Reason: Itching Docusate Sodium (Colace) 100 mg PO BID PRN PRN Reason: Constipation Emollient Ointment (Lansinoh Hpa) 0 gm TOP ASDIRECTED PRN PRN Reason: Sore Nipples Oxytocin/Sodium Chloride (Oxytocin 30 Unit/500 Ml-Ns) 30 unit in 500 mls @ 999 mls/hr IV TITRATE TENISHA Oxytocin/Sodium Chloride (Oxytocin 30 Unit/500 Ml-Ns) 30 unit in 500 mls @ 2 mls/hr IV TITRATE TENISHA; Protocol Tranexamic Acid 1,000 mg/ (Sodium Chloride) 110 mls @ 660 mls/hr IV ONETIME PRN PRN Reason: Bleeding Lactated Ringer's (Ringers, Lactated) 1,000 mls @ 125 mls/hr IV ASDIRECTED TENISHA Ibuprofen (Motrin) 400 mg PO Q4H PRN PRN Reason: Pain Ibuprofen (Motrin) 800 mg PO Q6H PRN PRN Reason: Pain Lidocaine HCl (Xylocaine 1%) 50 ml INJECT ONETIME PRN PRN Reason: Laceration repair Methylergonovine Maleate (Methergine) 0.2 mg IM ASDIRECTED PRN PRN Reason: Post Hemorrhage Misoprostol (Cytotec) 200 mcg PO ONETIME PRN PRN Reason: Post Hemorrhage Misoprostol (Cytotec) 25 mcg VAG ONETIME PRN PRN Reason: Cervical Ripening Misoprostol (Cytotec) 25 mcg VAG Q4H PRN PRN Reason: Cervical Ripening Last Admin: 05/20/19 19:30 Dose: 25 mcg Sodium Chloride (Saline Flush) 10 ml FLUSH ASDIRECTED PRN PRN Reason: Keep Vein Open Sodium Chloride (Saline Flush) 2.5 ml FLUSH ASDIRECTED PRN PRN Reason: Keep Vein Open Sodium Chloride (Normal Saline) 10 ml IV ASDIRECTED PRN PRN Reason: IV Use Sterile Water (Sterile Water For Irrigation) 1,000 ml IRR ASDIRECTED PRN PRN Reason: delivery Terbutaline Sulfate (Brethine) 0.25 mg SUBCUT ASDIRECTED PRN PRN Reason: Tacysystole Ursodiol (Actigal) 300 mg PO TIDMEALS [facility] Bal Nobles (Tucks) 1 pad TOP ASDIRECTED PRN PRN Reason: comfort care Discontinued Medications Bupivacaine HCl (Sensorcaine-Mpf 0.25%) Confirm Administered Dose 10 ml .ROUTE .STK-MED ONE Stop: 05/20/19 21:08 Fentanyl (Sublimaze) Confirm Administered Dose 100 mcg .ROUTE .STK-MED ONE Stop: 05/20/19 21:08 Lactated Ringer's (Ringers, Lactated) 1,000 mls @ 150 mls/hr IV ASDIRECTED [facility] Last Admin: 05/21/19 00:15 Dose: 125 mls/hr Fentanyl/Bupivacaine HCl (Dmywsnro-Ftbjc-Hc 2 Mcg/Ml-0.125%) Confirm Administered Dose 100 mls @ as directed .ROUTE .STK-MED ONE Stop: 05/20/19 21:08 - Problem List Review Problem List Initiated/Reviewed/Updated: Yes - My Orders Last 24 Hours: My Active Orders 05/21/19 01:30 diphenhydrAMINE [Benadryl] 50 mg PO Q6H PRN 05/21/19 01:52 May Shower [RC] ASDIRECTED Up ad Ashley [RC] ASDIRECTED Urinary Catheter Removal [RC] Per Unit Routine Vital Signs [RC] PER UNIT ROUTINE Acetaminophen [Tylenol Extra Strength] 1,000 mg PO Q4H PRN Acetaminophen [Tylenol Extra Strength] 500 mg PO Q4H PRN Benzocaine/Menthol [Dermoplast Pain Relief 20%-0.5% [employer]] 78 gm TOP ASDIRECTED PRN Bisacodyl [Dulcolax] 10 mg RECTAL ONETIME PRN Docusate Sodium [Colace] 100 mg PO BID PRN Ibuprofen [Motrin] 400 mg PO Q4H PRN Ibuprofen [Motrin] 800 mg PO Q6H PRN Lanolin [Lansinoh HPA] See Dose Instructions TOP ASDIRECTED PRN Bal Nobles [[place]] 1 pad TOP ASDIRECTED PRN Assess Lochia [WOMSER] Per Unit Routine Assess Uterine Involution [WOMSER] Per Unit Routine Breast Pump [WOMSER] Per Unit Routine Peripheral IV Discontinue [OM.PC] Routine 05/21/19 01:59 Sitz Bath [OM.PC] Per Unit Routine 05/21/19 02:00 Lactated Ringers [Ringers, Lactated] 1,000 ml IV ASDIRECTED Ice Therapy [OM.PC] Per Unit Routine Perineal Care [OM.PC] Per Unit Routine 05/21/19 04:00 Ursodiol [Actigal] 300 mg PO TIDMEALS 05/21/19 05:11 CMP [COMPREHENSIVE METABOLIC PN,CMP] [CHEM] AM 05/21/19 Breakfast Regular Diet [DIET] 05/22/19 05:11 HEMOGLOBIN/HEMATOCRIT,HH [HEME] Timed
[2019-05-21 06:38] LABS: BLOOD UREA NITROGEN,BUN 9 mg/dL (7.0-18.0); CARBON DIOXIDE,CO2 24.7 mmol/L (21.0-32.0); CHLORIDE,CL 106 mmol/L (98-107); GLUCOSE RANDOM 86 mg/dL (74-106); POTASSIUM,K 3.7 mmol/L (3.5-5.1); SODIUM,NA 139 mmol/L (136-145)
--- NOTE | 2019-05-21 09:37 | PCM48HPAN ---
Post Anesthesia Note - EVALUATION WITHIN 48HRS OF ANESTHETIC Vital Signs in Normal Range: Yes Patient Participated in Evaluation: Yes Respiratory Function Stable: Yes Airway Patent: Yes Cardiovascular Function Stable: Yes Hydration Status Stable: Yes Pain Control Satisfactory: Yes Nausea and Vomiting Control Satisfactory: Yes Mental Status Recovered: Yes Vital Signs: Last Vital Signs Temp 36.5 C 05/21/19 08:00 Pulse 65 05/21/19 08:00 Resp 15 05/21/19 08:00 BP 131/84 05/21/19 08:00 Pulse Ox 98 05/21/19 08:00 - COMMENTS/OBSERVATIONS Free Text/Narrative:: Patient comfortable at this time. No signs or symptoms of anesthesia related problems at this time.
[2019-05-21] MEDS: Ursodiol 300 MG Cap PO SCH ×4 (09:39→19:15)
[2019-05-21] MEDS: Ibuprofen 800 MG Tab PO PRN ×2 (09:45→19:55)
[2019-05-22 05:35] LABS: BLOOD UREA NITROGEN,BUN 10 mg/dL (7.0-18.0); CARBON DIOXIDE,CO2 24.2 mmol/L (21.0-32.0); CHLORIDE,CL 108 mmol/L (98-107); GLUCOSE RANDOM 89 mg/dL (74-106); POTASSIUM,K 3.9 mmol/L (3.5-5.1); SODIUM,NA 139 mmol/L (136-145)
--- NOTE | 2019-05-22 07:22 | PCM.PNPP ---
<Calli Yen - Last Filed: 05/22/19 07:20> - General Info Date of Service: 05/22/19 Functional Status: Reports: Pain Controlled - Review of Systems General: Reports: No Symptoms. Denies: Fever, Chills HEENT: Reports: No Symptoms. Denies: Headaches Pulmonary: Reports: No Symptoms. Denies: Shortness of Breath Cardiovascular: Reports: No Symptoms. Denies: Chest Pain, Palpitations Gastrointestinal: Reports: Abdominal Pain (moderate cramping while ) Genitourinary: Reports: No Symptoms. Denies: Dysuria Musculoskeletal: Reports: No Symptoms Skin: Reports: No Symptoms Neurological: Reports: No Symptoms Psychiatric: Reports: No Symptoms - General Info Date of Service: 05/22/19 - Patient Data Vital Signs - Most Recent: Last Vital Signs Temp 96.8 F 05/22/19 04:06 Pulse 61 05/22/19 04:06 Resp 18 05/22/19 04:06 BP 132/79 05/22/19 04:06 Pulse Ox 99 05/22/19 04:06 Weight - Most Recent: 89.811 kg Lab Results - Last 24 Hours: Laboratory Results - last 24 hr 05/22/19 05/22/19 Range/Units 05:00 05:00 Hgb 11.6 L (12.0-16.0) g/dL Hct 35.4 L (36.0-46.0) % Sodium 139 (136-145) mmol/L Potassium 3.9 (3.5-5.1) mmol/L Chloride 108 H (98-107) mmol/L Carbon Dioxide 24.2 (21.0-32.0) mmol/L BUN 10 (7.0-18.0) mg/dL Creatinine 0.7 (0.6-1.0) mg/dL Est Cr Clr Drug Dosing 121.78 mL/min Estimated GFR (MDRD) > 60.0 ml/min Glucose 89 (74-106) mg/dL Calcium 8.4 L (8.5-10.1) mg/dL Total Bilirubin 0.4 (0.2-1.0) mg/dL AST 131 H (15-37) IU/L ALT 112 H (14-63) IU/L Alkaline Phosphatase 213 H (46-116) U/L Total Protein 5.6 L (6.4-8.2) g/dL Albumin 2.3 L (3.4-5.0) g/dL Globulin 3.3 (2.6-4.0) g/dL Albumin/Globulin Ratio 0.7 L (0.9-1.6) Med Orders - Current: Current Medications Acetaminophen (Tylenol Extra Strength) 500 mg PO Q4H PRN PRN Reason: Pain Acetaminophen (Tylenol Extra Strength) 1,000 mg PO Q4H PRN PRN Reason: Pain Last Admin: 05/22/19 00:32 Dose: 1,000 mg Benzocaine/Menthol (Dermoplast Pain Relief 20%-0.5% [place]) 78 gm TOP ASDIRECTED PRN PRN Reason: Perineal Comfort Measure Bisacodyl (Dulcolax) 10 mg RECTAL ONETIME PRN PRN Reason: Constipation Butorphanol Tartrate (Stadol) 1 mg IVPUSH ASDIRECTED PRN PRN Reason: Pain Carboprost Tromethamine (Hemabate Ds) 250 mcg IM ASDIRECTED PRN PRN Reason: Post Hemorrhage Diphenhydramine HCl (Benadryl) 50 mg PO Q6H PRN PRN Reason: Itching Docusate Sodium (Colace) 100 mg PO BID PRN PRN Reason: Constipation Last Admin: 05/21/19 09:42 Dose: 100 mg Emollient Ointment (Lansinoh Hpa) 0 gm TOP ASDIRECTED PRN PRN Reason: Sore Nipples Oxytocin/Sodium Chloride (Oxytocin 30 Unit/500 Ml-Ns) 30 unit in 500 mls @ 999 mls/hr IV TITRATE [facility] Oxytocin/Sodium Chloride (Oxytocin 30 Unit/500 Ml-Ns) 30 unit in 500 mls @ 2 mls/hr IV TITRATE TENISHA; Protocol Tranexamic Acid 1,000 mg/ (Sodium Chloride) 110 mls @ 660 mls/hr IV ONETIME PRN PRN Reason: Bleeding Lactated Ringer's (Ringers, Lactated) 1,000 mls @ 125 mls/hr IV ASDIRECTED TENISHA Ibuprofen (Motrin) 400 mg PO Q4H PRN PRN Reason: Pain Ibuprofen (Motrin) 800 mg PO Q6H PRN PRN Reason: Pain Last Admin: 05/21/19 19:55 Dose: 800 mg Lidocaine HCl (Xylocaine 1%) 50 ml INJECT ONETIME PRN PRN Reason: Laceration repair Methylergonovine Maleate (Methergine) 0.2 mg IM ASDIRECTED PRN PRN Reason: Post Hemorrhage Misoprostol (Cytotec) 200 mcg PO ONETIME PRN PRN Reason: Post Hemorrhage Misoprostol (Cytotec) 25 mcg VAG ONETIME PRN PRN Reason: Cervical Ripening Misoprostol (Cytotec) 25 mcg VAG Q4H PRN PRN Reason: Cervical Ripening Last Admin: 05/20/19 19:30 Dose: 25 mcg Sodium Chloride (Saline Flush) 10 ml FLUSH ASDIRECTED PRN PRN Reason: Keep Vein Open Sodium Chloride (Saline Flush) 2.5 ml FLUSH ASDIRECTED PRN PRN Reason: Keep Vein Open Sodium Chloride (Normal Saline) 10 ml IV ASDIRECTED PRN PRN Reason: IV Use Sterile Water (Sterile Water For Irrigation) 1,000 ml IRR ASDIRECTED PRN PRN Reason: delivery Terbutaline Sulfate (Brethine) 0.25 mg SUBCUT ASDIRECTED PRN PRN Reason: Tacysystole Ursodiol (Actigal) 300 mg PO TIDMEALS [facility] Last Admin: 05/21/19 19:15 Dose: Not Given Bal Nobles (Tucks) 1 pad TOP ASDIRECTED PRN PRN Reason: comfort care Discontinued Medications Bupivacaine HCl (Sensorcaine-Mpf 0.25%) Confirm Administered Dose 10 ml .ROUTE .STK-MED ONE Stop: 05/20/19 21:08 Last Admin: 05/21/19 20:20 Dose: Not Given Fentanyl (Sublimaze) Confirm Administered Dose 100 mcg .ROUTE .STK-MED ONE Stop: 05/20/19 21:08 Last Admin: 05/21/19 20:20 Dose: Not Given Lactated Ringer's (Ringers, Lactated) 1,000 mls @ 150 mls/hr IV ASDIRECTED [facility] Last Admin: 05/21/19 00:15 Dose: 125 mls/hr Fentanyl/Bupivacaine HCl (Zkkbisoc-Expcg-Wm 2 Mcg/Ml-0.125%) Confirm Administered Dose 100 mls @ as directed .ROUTE .STK-MED ONE Stop: 05/20/19 21:08 Last Admin: 05/21/19 20:20 Dose: Not Given - Infant Interaction Infant Disposition, : in Room with Family Infant Interaction: Holding Infant Feeding: Breastfed Infant; Nursed Well Support Person: - Recovery Exam Fundal Tone: Firm Fundal Level: 2 Fingerbreadths Below Umbilicus Fundal Placement: Midline Lochia Amount: Moderate Lochia Color: Rubra/Red Perineum Description: Intact, Minimal Bruising/Swelling Episiotomy/Laceration: None Bladder Status: Nonpalpable Urinary Elimination: Voided - Exam General: Alert, Oriented HEENT: Pupils Equal Neck: Supple Lungs: Clear to Auscultation, Normal Respiratory Effort Cardiovascular: Regular Rate, Regular Rhythm GI/Abdominal Exam: Normal Bowel Sounds, Soft, Non-Tender, No Organomegaly, No Distention, No Abnormal Bruit, No Mass, Pelvis Stable Extremities: Normal Inspection, Normal Range of Motion, Non-Tender, No Pedal Edema, Normal Capillary Refill Skin: Warm, Dry, Intact Neurological: No New Focal Deficit Psy/Mental Status: Alert, Normal Affect, Normal Mood - Problem List Review Problem List Initiated/Reviewed/Updated: Yes - Assessment Assessment:: PPD1 with no lacerations well Pain well controlled Moderate lochia rubra - Plan Plan:: Regular diet Pain control PRN Routine cares May discharge home after 24h <Kris Rodriguez - Last Filed: 05/22/19 07:42> - Patient Data Vital Signs - Most Recent: Last Vital Signs Temp 36.0 C 05/22/19 04:06 Pulse 61 05/22/19 04:06 Resp 18 05/22/19 04:06 BP 132/79 05/22/19 04:06 Pulse Ox 99 05/22/19 04:06 Lab Results - Last 24 Hours: Laboratory Results - last 24 hr 05/22/19 05/22/19 Range/Units 05:00 05:00 Hgb 11.6 L (12.0-16.0) g/dL Hct 35.4 L (36.0-46.0) % Sodium 139 (136-145) mmol/L Potassium 3.9 (3.5-5.1) mmol/L Chloride 108 H (98-107) mmol/L Carbon Dioxide 24.2 (21.0-32.0) mmol/L BUN 10 (7.0-18.0) mg/dL Creatinine 0.7 (0.6-1.0) mg/dL Est Cr Clr Drug Dosing 121.78 mL/min Estimated GFR (MDRD) > 60.0 ml/min Glucose 89 (74-106) mg/dL Calcium 8.4 L (8.5-10.1) mg/dL Total Bilirubin 0.4 (0.2-1.0) mg/dL AST 131 H (15-37) IU/L ALT 112 H (14-63) IU/L Alkaline Phosphatase 213 H (46-116) U/L Total Protein 5.6 L (6.4-8.2) g/dL Albumin 2.3 L (3.4-5.0) g/dL Globulin 3.3 (2.6-4.0) g/dL Albumin/Globulin Ratio 0.7 L (0.9-1.6) Med Orders - Current: Current Medications Acetaminophen (Tylenol Extra Strength) 500 mg PO Q4H PRN PRN Reason: Pain Acetaminophen (Tylenol Extra Strength) 1,000 mg PO Q4H PRN PRN Reason: Pain Last Admin: 05/22/19 00:32 Dose: 1,000 mg Benzocaine/Menthol (Dermoplast Pain Relief 20%-0.5% [place]) 78 gm TOP ASDIRECTED PRN PRN Reason: Perineal Comfort Measure Bisacodyl (Dulcolax) 10 mg RECTAL ONETIME PRN PRN Reason: Constipation Butorphanol Tartrate (Stadol) 1 mg IVPUSH ASDIRECTED PRN PRN Reason: Pain Carboprost Tromethamine (Hemabate Ds) 250 mcg IM ASDIRECTED PRN PRN Reason: Post Hemorrhage Diphenhydramine HCl (Benadryl) 50 mg PO Q6H PRN PRN Reason: Itching Docusate Sodium (Colace) 100 mg PO BID PRN PRN Reason: Constipation Last Admin: 05/21/19 09:42 Dose: 100 mg Emollient Ointment (Lansinoh Hpa) 0 gm TOP ASDIRECTED PRN PRN Reason: Sore Nipples Oxytocin/Sodium Chloride (Oxytocin 30 Unit/500 Ml-Ns) 30 unit in 500 mls @ 999 mls/hr IV TITRATE [facility] Oxytocin/Sodium Chloride (Oxytocin 30 Unit/500 Ml-Ns) 30 unit in 500 mls @ 2 mls/hr IV TITRATE [place]IS[place]; Protocol Tranexamic Acid 1,000 mg/ (Sodium Chloride) 110 mls @ 660 mls/hr IV ONETIME PRN PRN Reason: Bleeding Lactated Ringer's (Ringers, Lactated) 1,000 mls @ 125 mls/hr IV ASDIRECTED [place] Ibuprofen (Motrin) 400 mg PO Q4H PRN PRN Reason: Pain Ibuprofen (Motrin) 800 mg PO Q6H PRN PRN Reason: Pain Last Admin: 05/22/19 07:34 Dose: 800 mg Lidocaine HCl (Xylocaine 1%) 50 ml INJECT ONETIME PRN PRN Reason: Laceration repair Methylergonovine Maleate (Methergine) 0.2 mg IM ASDIRECTED PRN PRN Reason: Post Hemorrhage Misoprostol (Cytotec) 200 mcg PO ONETIME PRN PRN Reason: Post Hemorrhage Misoprostol (Cytotec) 25 mcg VAG ONETIME PRN PRN Reason: Cervical Ripening Misoprostol (Cytotec) 25 mcg VAG Q4H PRN PRN Reason: Cervical Ripening Last Admin: 05/20/19 19:30 Dose: 25 mcg Sodium Chloride (Saline Flush) 10 ml FLUSH ASDIRECTED PRN PRN Reason: Keep Vein Open Sodium Chloride (Saline Flush) 2.5 ml FLUSH ASDIRECTED PRN PRN Reason: Keep Vein Open Sodium Chloride (Normal Saline) 10 ml IV ASDIRECTED PRN PRN Reason: IV Use Sterile Water (Sterile Water For Irrigation) 1,000 ml IRR ASDIRECTED PRN PRN Reason: delivery Terbutaline Sulfate (Brethine) 0.25 mg SUBCUT ASDIRECTED PRN PRN Reason: Tacysystole Ursodiol (Actigal) 300 mg PO TIDMEALS [facility] Last Admin: 05/22/19 07:34 Dose: 300 mg Witch Mallorie (Tucks) 1 pad TOP ASDIRECTED PRN PRN Reason: comfort care Discontinued Medications Bupivacaine HCl (Sensorcaine-Mpf 0.25%) Confirm Administered Dose 10 ml .ROUTE .STK-MED ONE Stop: 05/20/19 21:08 Last Admin: 05/21/19 20:20 Dose: Not Given Fentanyl (Sublimaze) Confirm Administered Dose 100 mcg .ROUTE .STK-MED ONE Stop: 05/20/19 21:08 Last Admin: 05/21/19 20:20 Dose: Not Given Lactated Ringer's (Ringers, Lactated) 1,000 mls @ 150 mls/hr IV ASDIRECTED [facility] Last Admin: 05/21/19 00:15 Dose: 125 mls/hr Fentanyl/Bupivacaine HCl (Vmxpkrgw-Peeew-Lc 2 Mcg/Ml-0.125%) Confirm Administered Dose 100 mls @ as directed .ROUTE .STK-MED ONE Stop: 05/20/19 21:08 Last Admin: 05/21/19 20:20 Dose: Not Given - Problem List & Annotations (1) Vaginal delivery SNOMED Code(s): 685891830 Code(s): O80 - ENCOUNTER FOR FULL-TERM UNCOMPLICATED DELIVERY Status: Acute Current Visit: Yes - Assessment Assessment:: Normal vaginal delivery , s/p IOL for suspected intrahepatic cholestasis of - Plan Plan:: Will follow LFTs today Possible discharge today
[2019-05-22] MEDS: Ibuprofen 800 MG Tab PO PRN (07:34)
[2019-05-22] MEDS: Ursodiol 300 MG Cap PO SCH (07:34)
[2019-05-22 07:50] VITALS: BP 125/75; PULSE 58
== END 2019-05-22 10:50 | disposition home or self-care (01) | DRG 805 ==
LOC: MW.OB 01:41 → OBSVTOIN 05-21 01:41 → MW.OB 05-21 05:53
PROVIDERS: ADMIT Obstetrics & Gynecology; ATTEND Obstetrics & Gynecology
PROC: 10E0XZZ Delivery of Products of Conception, External Approach (ICD-10-PCS; principal; 2019-05-21)
PROC: 3E0P7VZ Introduction of Hormone into Female Reproductive, Via Natural or Artificial Opening (ICD-10-PCS; 2019-05-21)
PROC: 3E033VJ Introduction of Other Hormone into Peripheral Vein, Percutaneous Approach (ICD-10-PCS; 2019-05-21)
PROC: 10907ZC Drainage of Amniotic Fluid, Therapeutic from Products of Conception, Via Natural or Artificial Opening (ICD-10-PCS; 2019-05-21)
PROC: 3E0S3BZ Introduction of Anesthetic Agent into Epidural Space, Percutaneous Approach (ICD-10-PCS; 2019-05-21)
PROC: 00HU33Z Insertion of Infusion Device into Spinal Canal, Percutaneous Approach (ICD-10-PCS; 2019-05-21)
DX: O26.62 Liver and biliary tract disorders in childbirth (principal); K83.1 Obstruction of bile duct; Z37.0 Single live birth; Z3A.38 38 weeks gestation of pregnancy; Z91.040 Latex allergy status; Z90.49 Acquired absence of other specified parts of digestive tract; Z79.899 Other long term (current) drug therapy
CPT/HCPCS: 01967; 36415; 59025; 59409; 80053; 85014; 85018; 85027; 86850; 86900; 86901; A9270-GY; J3010; J3490; J7120

== ENCOUNTER 2021-07-03 13:10 | Emergency (ER) | payer OTHER ==
[2021-07-03] MEDS ORDERED: Sodium Chloride 0.9% 2.5 ML Syringe FLUSH PRN (15:47)
[2021-07-03] MEDS ORDERED: Ondansetron 4 MG/2 ML SDV IVPUSH ONE (15:47)
[2021-07-03] MEDS ORDERED: Sodium Chloride 0.9% 1,000 ML IV ONE (15:47)
[2021-07-03] MEDS ORDERED: Sodium Chloride 0.9% 10 ML Syringe FLUSH PRN (15:47)
--- NOTE | 2021-07-03 15:49 | EDM.PDOC ---
ED HPI GENERAL MEDICAL PROBLEM - General Chief Complaint: Abdominal Pain Stated Complaint: bladder infection Time Seen by Provider: 07/03/21 15:37 Source of Information: Reports: Patient History Limitations: Reports: No Limitations - History of Present Illness INITIAL COMMENTS - FREE TEXT/NARRATIVE: HISTORY AND PHYSICAL: History of present illness: The patient is a 30-year-old female who presents to the emergency department with complaints hematuria that started this morning. The patient had been diagnosed with a urinary tract infection over the phone for complaints of dy suria. The provider started her on Macrobid she had complete resolution of symptoms and she had 2 tablets to go until this morning when she awoke and noticed gross hematuria. The patient is starting to have dysuria again as the day went on. Patient does complain of abdominal pain that started as the day went on. The patient complaints of increased nausea. The patient states that she has lost 15 pounds in a month as she has had diarrhea every day. She associated this with the removal of her gallbladder. The patient has not taken any [id number] meds for her diarrhea. Patient states that she has been eating and drinking adequately prior to the diagnosis of her urinary tract infection. Patient denies any fever, chills, headache, change in vision, syncope or near syncope. Denies any chest pain, back pain, shortness of breath or cough. Denies any constipation. Review of systems: As per history of present illness and below otherwise all systems reviewed and negative. Past medical history: As per history of present illness and as reviewed below otherwise noncontributory. Surgical history: As per history of present illness and as reviewed below otherwise noncontributo ry. Social history: See social history for further information Family history: As per history of present illness and as reviewed below otherwise noncontributory. Physical exam: General: Well developed and well nourished. Alert and orientated x 3. Nontoxic in appearance and in no acute distress. Vital signs are stable and have been reviewed by me. Nursing notes were reviewed. HEENT: Atraumatic, normocephalic, pupils equal and reactive bilaterally, negative for conjunctival pallor or scleral icterus, mucous membranes moist, TMs normal bilaterally, throat clear, neck supple, nontender, trachea midline. No drooling or trismus noted. No meningeal signs. No hot potato voice noted. Lungs: Clear to auscultation bilaterally. No wheezes, rales, or rhonchi. Chest nontender. Normal work of breathing, no accessory muscles used. Heart: S1S2, regular rate and rhythm without overt murmur, gallops, or rubs. No JVD. No peripheral edema Abdomen: Soft, nondistended, nontender. Normoactive bowel sounds. Negative for masses or costovertebral tenderness. Skin: Intact, warm, dry. No lesions or rashes noted. Hematologic: No petechiae or purpra. Mucosa appropriate color and normal nail bed color and refill. Extremities: Atraumatic, moves all extremities per self without difficulty or deficits, negative for cords or calf pain. Neurovascular unremarkable. Neuro: Awake, alert, oriented. Cranial nerves II through XII unremarkable. Cerebellum unremarkable. Motor and sensory unremarkable throughout. Exam nonfocal. Psychiatric: Mood and affect are appropriate. Normal thought process. Answering questions appropriately. Notes: *This patient was seen and evaluated during the 2019 SARS-CoV-2 novel coronavirus pandemic period. Community viral transmission is ongoing at time of this encounter and the emergency department is operating under pandemic response procedures. As stated above the patient is a 30-year-old who presents to the emergency department with a recurrent urinary tract infection. The patient is spilling glucose in her urine. The patient does not have a history of diabetes. The patient's urinalysis color is orange the appearance is cloudy. Urine protein over 300, urine glucose 250, urine ketones 15, occult blood large amount, nitrate positive, bilirubin moderate, leukocyte Estrace moderate, bacteria 3+. Urine hCG negative. As the patient is having diarrhea for over a month and has lost 15 pounds we will do general blood work in the emergency department can obtain an abdomen pelvis CT. I will give the patient IV fluids and Zofran for her nausea. The patient is agreeable with this plan. The patient's blood work was essentially normal. The patient's CT IMPRESSION: Unremarkable noncontrast CT of the abdomen and pelvis. Specifically no kidney or ureteral stone and no hydronephrosis. No finding to explain abdomen or flank pain. The patient states she feels much better after the IV fluids and Zofran. I will prescribe her Cipro 500 mg p.o. twice daily for 7 days for her urinary tract infection and Zofran 3 mg every 6 hours as needed for nausea. I gave the patient detailed instructions on when she would need to return to the emergency department and instructions that she needs to follow-up with her primary care this 48 hours after completing her antibiotic for another urine to make sure she has cleared the infection. The patient is agreeable with this discharge plan I have talked with the patient about today's findings, in addition to providing specific details for plan of care. Reassessment at the time of disposition demonstrates that the patient is in no acute distress. The patient is stable for discharge, counseling was provided and we discussed in great detail signs and symptoms that would prompt them to return to the Emergency Department. Medication, follow up and supportive care measures were reviewed and discussed. Voices understanding and is agreeable to plan of care. Denies any further questions or concerns at this time. Diagnostics: BC, CMP, UA, abdomen/pelvis CT Therapeutics: IV fluids, Zofran Prescription: Cipro 500 mg p.o. twice daily for 7 days for UTI, hold Zofran 4 mg ODT every 6 hours as needed for nausea Impression: Urinary tract infection, nausea, abdominal pain Plan: 1. You were evaluated today on an emergent basis. Your recurrent urinary tract infection, abdominal pain, and nausea were evaluated with a repeat urinalysis which did show a significant urinary tract infection. Your blood work was normal. There is no indication of diabetes. Your CT of your abdomen/pelvis was normal. I have prescribed you Cipro 500mg po twice daily for 7 days and zofran 4mg ODT 6 hours as needed for nausea. I would follow-up with your primary care provider to ensure that you have cleared the infection once you are done with your Cipro for at least 48 hours. If you have any more difficulties or feeling the symptoms are becoming worse please return to the emergency department. 2. You can alternate Tylenol and ibuprofen as needed for pain and fever management. 3. We encourage you to follow up with your primary care provider and/or recommended specialist in the next few days for re-evaluation and further care/management. 4. If your symptoms should worsen, new symptoms develop or any of the signs and symptoms we discussed should arise please return to the emergency room or call 911 (if needed). Definitive disposition and diagnosis as appropriate pending reevaluation and review of above. abdomen Pain Score (Numeric/FACES): 5 - Related Data Allergies Allergy/AdvReac Type Severity Reaction Status Date / Time latex Allergy Rash Verified 07/03/21 13:34 Home Meds: Home Meds Docosahexaenoic Acid [ Dha] 200 mg PO DAILY 12/15/17 [History] ursodioL [Ursodiol] 300 mg PO TID 05/20/19 [History] Ciprofloxacin HCl [Cipro] 500 mg PO BID 7 Days #14 tablet 07/03/21 [Rx] Ondansetron [Zofran ODT] 4 mg PO Q6H PRN #10 tab.dis 07/03/21 [Rx] Past Medical History - Past Health History Medical/Surgical History: Denies Medical/Surgical History HEENT History: Reports: Impaired Vision Cardiovascular History: Reports: None Respiratory History: Reports: None Genitourinary History: Reports: None [employer] History: Reports: Musculoskeletal History: Reports: None Neurological History: Reports: None Psychiatric History: Reports: None Endocrine/Metabolic History: Reports: None Dermatologic History: Reports: None - Infectious Disease History Infectious Disease History: Reports: None - Past Surgical History HEENT Surgical History: Reports: Other (See Below) Other HEENT Surgeries/Procedures: [place] tooth extraction. GI Surgical History: Reports: Cholecystectomy Female Surgical History: Reports: None Endocrine Surgical History: Reports: None Neurological Surgical History: Reports: None Musculoskeletal Surgical History: Reports: None Social & Family History - Family History Family Medical History: No Pertinent Family History HEENT: Reports: Impaired Vision Cardiac: Reports: None OBGYN: Reports: Endocrine/Metabolic: Reports: Diabetes, type II - Tobacco Use Tobacco Use Status *Q: Never Tobacco User - Caffeine Use Caffeine Use: Reports: Coffee, Soda - Recreational Drug Use Recreational Drug Use: No ED ROS GENERAL - Review of Systems Review Of Systems: Comprehensive ROS is negative, except as noted in HPI. ED EXAM, GI/ABD - Physical Exam Exam: See Below (See dictation) Course - Vital Signs Last Recorded V/S: Last Vital Signs Temp 98.1 F 07/03/21 13:32 Pulse 107 H 07/03/21 13:32 Resp 18 07/03/21 13:32 BP 117/73 07/03/21 13:32 Pulse Ox 99 07/03/21 13:32 - Orders/Labs/Meds Orders: Active Orders 24 hr Category Date Time Status CULTURE URINE [MREF] Stat Lab 07/03/21 14:57 Received Sodium Chloride 0.9% [Saline Flush] Med 07/03/21 15:47 Active 10 ml FLUSH ASDIRECTED PRN Sodium Chloride 0.9% [Saline Flush] Med 07/03/21 15:47 Active 2.5 ml FLUSH ASDIRECTED PRN Saline Lock Insert [OM.PC] Stat Oth 07/03/21 15:47 Ordered Medication Orders Sodium Chloride (Sodium Chloride 0.9% 10 Ml Syringe) 10 ml FLUSH ASDIRECTED PRN PRN Reason: Keep Vein Open Last Admin: 07/03/21 16:15 Dose: 10 ml Documented by: YAKELIN Sodium Chloride (Sodium Chloride 0.9% 2.5 Ml Syringe) 2.5 ml FLUSH ASDIRECTED PRN PRN Reason: Keep Vein Open Last Admin: 07/03/21 16:14 Dose: 2.5 ml Documented by: YAKELIN Labs: Laboratory Tests 07/03/21 07/03/21 07/03/21 Range/Units 14:57 14:57 16:15 WBC 9.13 (4.0-11.0) K/uL RBC 4.88 (4.30-5.90) M/uL Hgb 14.8 (12.0-16.0) g/dL Hct 42.6 (36.0-46.0) % MCV 87.3 (80.0-98.0) fL MCH 30.3 (27.0-32.0) pg MCHC 34.7 (31.0-37.0) g/dL RDW Std Deviation 42.3 (28.0-62.0) fl RDW Coeff of Brenda 13 (11.0-15.0) % Plt Count 250 (150-400) K/uL MPV 10.90 (7.40-12.00) fL Neut % (Auto) 66.5 (48.0-80.0) % Lymph % (Auto) 24.8 (16.0-40.0) % [place] % (Auto) 7.2 (0.0-15.0) % Eos % (Auto) 1.2 (0.0-7.0) % Baso % (Auto) 0.3 (0.0-1.5) % Neut # (Auto) 6.1 H (1.4-5.7) K/uL Lymph # (Auto) 2.3 (0.6-2.4) K/uL [place] # (Auto) 0.7 (0.0-0.8) K/uL Eos # (Auto) 0.1 (0.0-0.7) K/uL Baso # (Auto) 0.0 (0.0-0.1) K/uL Nucleated RBC % 0.0 /100WBC Nucleated RBCs # 0 K/uL Sodium (136-145) mmol/L Potassium (3.5-5.1) mmol/L Chloride (98-107) mmol/L Carbon Dioxide (21.0-32.0) mmol/L BUN (7.0-18.0) mg/dL Creatinine (0.6-1.0) mg/dL Est Cr Clr Drug Dosing mL/min Estimated GFR (MDRD) ml/min Glucose (74-106) mg/dL Calcium (8.5-10.1) mg/dL Total Bilirubin (0.2-1.0) mg/dL AST (15-37) IU/L ALT (14-63) IU/L Alkaline Phosphatase (46-116) U/L Total Protein (6.4-8.2) g/dL Albumin (3.4-5.0) g/dL Globulin (2.6-4.0) g/dL Albumin/Globulin Ratio (0.9-1.6) Urine Color ORANGE Urine Appearance CLOUDY Urine pH 6.5 (5.0-8.0) Ur Specific [place] 1.025 (1.001-1.035) Urine Protein >=300 H (NEGATIVE) mg/dL Urine Glucose (UA) 250 H (NEGATIVE) mg/dL Urine Ketones 15 H (NEGATIVE) mg/dL Urine Occult Blood LARGE H (NEGATIVE) Urine Nitrite POSITIVE H (NEGATIVE) Urine Bilirubin MODERATE H (NEGATIVE) Urine Ictotest NEGATIVE Urine Urobilinogen >=8.0 H (<2.0) EU/dL Ur Leukocyte Esterase MODERATE H (NEGATIVE) Urine RBC 20-30 (0-2/HPF) Urine WBC 30-40 (0-5/HPF) Ur Epithelial Cells RARE (NONE-FEW) Urine Bacteria 3+ H (NEGATIVE) Urine HCG, Qual NEGATIVE (NEGATIVE) 07/03/21 Range/Units 16:15 WBC (4.0-11.0) K/uL RBC (4.30-5.90) M/uL Hgb (12.0-16.0) g/dL Hct (36.0-46.0) % MCV (80.0-98.0) fL MCH (27.0-32.0) pg MCHC (31.0-37.0) g/dL RDW Std Deviation (28.0-62.0) fl RDW Coeff of Brenda (11.0-15.0) % Plt Count (150-400) K/uL MPV (7.40-12.00) fL Neut % (Auto) (48.0-80.0) % Lymph % (Auto) (16.0-40.0) % [place] % (Auto) (0.0-15.0) % Eos % (Auto) (0.0-7.0) % Baso % (Auto) (0.0-1.5) % Neut # (Auto) (1.4-5.7) K/uL Lymph # (Auto) (0.6-2.4) K/uL [place] # (Auto) (0.0-0.8) K/uL Eos # (Auto) (0.0-0.7) K/uL Baso # (Auto) (0.0-0.1) K/uL Nucleated RBC % /100WBC Nucleated RBCs # K/uL Sodium 140 (136-145) mmol/L Potassium 3.7 (3.5-5.1) mmol/L Chloride 104 (98-107) mmol/L Carbon Dioxide 27.9 (21.0-32.0) mmol/L BUN 15 (7.0-18.0) mg/dL Creatinine 0.9 (0.6-1.0) mg/dL Est Cr Clr Drug Dosing 89.16 mL/min Estimated GFR (MDRD) > 60.0 ml/min Glucose 86 (74-106) mg/dL Calcium 8.5 (8.5-10.1) mg/dL Total Bilirubin 0.5 (0.2-1.0) mg/dL AST 18 (15-37) IU/L ALT 13 L (14-63) IU/L Alkaline Phosphatase 67 (46-116) U/L Total Protein 7.7 (6.4-8.2) g/dL Albumin 4.4 (3.4-5.0) g/dL Globulin 3.3 (2.6-4.0) g/dL Albumin/Globulin Ratio 1.3 (0.9-1.6) Urine Color Urine Appearance Urine pH (5.0-8.0) Ur Specific [place] (1.001-1.035) Urine Protein (NEGATIVE) mg/dL Urine Glucose (UA) (NEGATIVE) mg/dL Urine Ketones (NEGATIVE) mg/dL Urine Occult Blood (NEGATIVE) Urine Nitrite (NEGATIVE) Urine Bilirubin (NEGATIVE) Urine Ictotest Urine Urobilinogen (<2.0) EU/dL Ur Leukocyte Esterase (NEGATIVE) Urine RBC (0-2/HPF) Urine WBC (0-5/HPF) Ur Epithelial Cells (NONE-FEW) Urine Bacteria (NEGATIVE) Urine HCG, Qual (NEGATIVE) Meds: Medications Generic Name Dose Route Start Last Admin Trade Name Patricia PRN Reason Stop Dose Admin Sodium Chloride 10 ml 07/03/21 15:47 07/03/21 16:15 Sodium Chloride 0.9% 10 Ml Syringe FLUSH 10 ml ASDIRECTED PRN Administration Keep Vein Open Sodium Chloride 2.5 ml 07/03/21 15:47 07/03/21 16:14 Sodium Chloride 0.9% 2.5 Ml Syringe FLUSH 2.5 ml ASDIRECTED PRN Administration Keep Vein Open Discontinued Medications Generic Name Dose Route Start Last Admin Trade Name Patricia PRN Reason Stop Dose Admin Sodium Chloride 1,000 mls @ 999 mls/hr 07/03/21 15:47 07/03/21 16:14 Normal Saline IV 07/03/21 16:47 999 mls/hr .BOLUS ONE Administration Ondansetron HCl 4 mg 07/03/21 15:47 07/03/21 16:15 Ondansetron 4 Mg/2 Ml Sdv IVPUSH 07/03/21 15:48 4 mg ONETIME ONE Administration Departure - Departure Time of Disposition: 17:25 Disposition: Home, Self-Care 01 Condition: Good Clinical Impression: Nausea UTI (urinary tract infection) Qualifiers: Urinary tract infection type: acute cystitis Hematuria presence: with hematuria Qualified Code(s): N30.01 - Acute cystitis with hematuria Abdominal pain Qualifiers: Abdominal location: generalized Qualified Code(s): R10.84 - Generalized abdo fan pain - Discharge Information *PRESCRIPTION DRUG MONITORING PROGRAM REVIEWED*: Not Applicable *COPY OF PRESCRIPTION DRUG MONITORING REPORT IN PATIENT MICHELLE: Not Applicable Prescriptions: Ciprofloxacin HCl [Cipro] 500 mg PO BID 7 Days #14 tablet Ondansetron [Zofran ODT] 4 mg PO Q6H PRN #10 tab.dis PRN Reason: Nausea Instructions: Nausea and Vomiting, Adult, [id number], Urinary Tract Infection, Adult Referrals: Alivia Vallejo PA [Primary Care Provider] - Forms: ED Department Discharge Additional Instructions: The following information is given to patients seen in the emergency department who are being discharged to home. This information is to outline your options for follow-up care. We provide all patients seen in our emergency department with a follow-up referral. The need for follow-up, as well as the timing and circumstances, are variable depending upon the specifics of your emergency department visit. If you don't have a primary care physician on staff, we will provide you with a referral. We always advise you to contact your personal physician following an emergency department visit to inform them of the circumstance of the visit and for follow-up with them and/or the need for any referrals to a consulting specialist. The emergency department will also refer you to a specialist when appropriate. This referral assures that you have the opportunity for follow-up care with a specialist. All of these measure are taken in an effort to provide you with optimal care, which includes your follow-up. Under all circumstances we always encourage you to contact your private physician who remains a resource for coordinating your care. When calling for follow-up care, please make the office aware that this follow-up is from your recent emergency room visit. If for any reason you are refused follow-up, please contact the [facility] Emergency Department at and asked to speak to the emergency department charge nurse. Sierra Contreras [facility] - Primary Care [address] [place] [address] [facility] [address] [place] [id number] Plan: 1. You were evaluated today on an emergent basis. Your recurrent urinary tract infection, abdominal pain, and nausea were evaluated with a repeat urinalysis which did show a significant urinary tract infection. Your blood work was normal. There is no indication of diabetes. Your CT of your abdomen/pelvis was normal. I have prescribed you Cipro 500mg po twice daily for 7 days and zofran 4mg 3 6 hours as needed for nausea. I would follow-up with your primary care provider to ensure that you have cleared the infection once you are done with your Cipro for at least 48 hours. If you have any more difficulties or feeling the symptoms are becoming worse please return to the emergency department. 2. You can alternate Tylenol and ibuprofen as needed for pain and fever management. 3. We encourage you to follow up with your primary care provider and/or recommended specialist in the next few days for re-evaluation and further care/management. 4. If your symptoms should worsen, new symptoms develop or any of the signs and symptoms we discussed should arise please return to the emergency room or call 911 (if needed). Sepsis Event Note (ED) - Evaluation Sepsis Screening Result: No Definite Risk - Focused Exam Vital Signs: Vital Signs Temp Pulse Resp BP Pulse Ox 07/03/21 13:32 98.1 F 107 H 18 117/73 99 - My Orders Last 24 Hours: My Active Orders 07/03/21 15:47 Sodium Chloride 0.9% [Saline Flush] 10 ml FLUSH ASDIRECTED PRN Sodium Chloride 0.9% [Saline Flush] 2.5 ml FLUSH ASDIRECTED PRN Saline Lock Insert [OM.PC] Stat - Assessment/Plan Last 24 Hours: My Active Orders 07/03/21 15:47 Sodium Chloride 0.9% [Saline Flush] 10 ml FLUSH ASDIRECTED PRN Sodium Chloride 0.9% [Saline Flush] 2.5 ml FLUSH ASDIRECTED PRN Saline Lock Insert [OM.PC] Stat
--- NOTE | 2021-07-03 16:39 | CT ---
INDICATION: Recurrent urinary tract infection. Abdomen and flank pain. TECHNIQUE: CT abdomen and pelvis without contrast. COMPARISON: None. FINDINGS: Lower chest: Unremarkable. Liver: Normal in size and attenuation. No suspicious masses. Gallbladder and bile ducts: Post cholecystectomy. Pancreas: Unremarkable. No mass or inflammation. Spleen: Normal in size. No masses. Adrenal glands: Normal in size. No nodules. Kidneys: Normal in size. No suspicious masses, stones, or hydronephrosis. GI tract: Unremarkable. Normal in caliber. No sign of mass or inflammation. Normal appendix. Vasculature: Unremarkable. Lymph nodes: No lymphadenopathy. Abdominal wall/Omentum/Peritoneum: Unremarkable. No sign of mass or infiltration. No free air or significant free fluid. Pelvis: IUD appears in proper position. Pelvic structures otherwise unremarkable. Bones: Unremarkable for age. IMPRESSION: Unremarkable noncontrast CT of the abdomen and pelvis. Specifically no kidney or ureteral stone and no hydronephrosis. No finding to explain abdomen or flank pain. Please note that all CT scans at this facility use dose modulation, iterative reconstruction, and/or weight-based dosing when appropriate to reduce radiation dose to as low as reasonably achievable. Dictated by Max Gibson MD @ 07/03/2021 4:38:34 PM (Electronically Signed)
[2021-07-03 16:53] LABS: BLOOD UREA NITROGEN,BUN 15 mg/dL (7.0-18.0); CARBON DIOXIDE,CO2 27.9 mmol/L (21.0-32.0); CHLORIDE,CL 104 mmol/L (98-107); GLUCOSE RANDOM 86 mg/dL (74-106); POTASSIUM,K 3.7 mmol/L (3.5-5.1); SODIUM,NA 140 mmol/L (136-145)
[2021-07-03 19:48] VITALS: BP 110/65; PULSE 81
== END 2021-07-03 17:45 | disposition home or self-care (01) ==
LOC: MW.ED 13:10
DX: N30.01 Acute cystitis with hematuria (principal); Z91.048 Other nonmedicinal substance allergy status
CPT/HCPCS: 36415; 74176; 80053; 81001; 81025; 85025; 87086; 96374; 99284; J2405; J7030

== ENCOUNTER 2023-04-24 05:03 | Emergency (ER) | payer OTHER ==
[2023-04-24] MEDS ORDERED: Morphine 4 MG/ML Syringe ONE (05:13)
[2023-04-24] MEDS ORDERED: Acetaminophen 325 MG Tab PO ONE (05:15)
[2023-04-24] MEDS ORDERED: Lidocaine/Epineph/Tetracaine 3 ML Syringe TOP ONE (05:15)
[2023-04-24] MEDS ORDERED: Acetaminophen 325 MG Tab ONE (05:16)
[2023-04-24] MEDS ORDERED: Ketorolac 30 MG/ML SDV IVPUSH ONE (05:56)
[2023-04-24] MEDS ORDERED: Cephalexin 500 MG Cap PO ONE (06:17)
[2023-04-24] MEDS ORDERED: Bacitracin Oint 28.35 GM Tube TOP STA (06:49)
[2023-04-24 07:37] VITALS: BP 136/82; PULSE 82
== END 2023-04-24 07:35 | disposition home or self-care (01) ==
LOC: MW.ED 05:03
DX: S60.512A Abrasion of left hand, initial encounter (principal); S00.81XA Abrasion of other part of head, initial encounter; Z91.040 Latex allergy status; V29.99XA Rider (driver) (passenger) of other motorcycle injured in unspecified traffic accident, initial encounter; Y92.410 Unspecified street and highway as the place of occurrence of the external cause
CPT/HCPCS: 70450; 70486; 72125; 73110; 73130; 96374; 99284; A9270; J1885; 99283